=== PATIENT | female | born 1950 | race Caucasian/White ===

== ENCOUNTER → 2022-06-26 | Outpatient (CLI) | payer MEDICARE ==
[2022-06-28 13:43] LABS: Stool Occult Blood Guaiac 1 Neg (Neg)
== END | disposition home or self-care (01) ==
LOC: LAB 15:15 → LAB SHORT 15:15
PROVIDERS: Family Medicine
DX: K92.1 Melena (principal)
CPT/HCPCS: 82272

== ENCOUNTER 2024-03-22 08:11 | Day surgery (SDC) | payer MEDICARE ==
[~2024-03-22] VITALS: Ht 167.6 cm; Wt 50.7 kg
[~2024-03-22 08:11] MED LIST: Lactated Ringer's 1,000 ML IV ONE; propofoL 50 ML IV ONE
[2024-03-22] MEDS ORDERED: CHLO25B (09:04)
[2024-03-22] MEDS ORDERED: VITAMIN D325 MC3 (09:05)
[2024-03-22] MEDS ORDERED: FISH OIL 1,0001 EA10 (09:05)
[2024-03-22] MEDS ORDERED: VALA500 (09:06)
[2024-03-22] MEDS ORDERED: ZESTRIL40 M1 (09:06)
[2024-03-22] MEDS ORDERED: Lactated Ringer's 1,000 ML IV ONE (09:15)
[2024-03-22 10:33] VITALS: BP 106/84
--- NOTE | 2024-03-22 11:04 | NUR ---
03/22/24 1104 Esequiel Alvarez 16ML NS INJECTED FOR POLYPECTOMY
== END 2024-03-22 10:46 | disposition home or self-care (01) ==
LOC: ORSCSDS 08:11
PROVIDERS: Internal Medicine Gastroenterology
PROC: 0DBK8ZX Excision of Ascending Colon, Via Natural or Artificial Opening Endoscopic, Diagnostic (ICD-10-PCS; principal; 2024-03-22 09:30)
PROC: 0DBH8ZX Excision of Cecum, Via Natural or Artificial Opening Endoscopic, Diagnostic (ICD-10-PCS; principal; 2024-03-22 09:30)
DX: K62.5 Hemorrhage of anus and rectum (principal); D12.0 Benign neoplasm of cecum; D12.3 Benign neoplasm of transverse colon; K57.30 Diverticulosis of large intestine without perforation or abscess without bleeding; K64.4 Residual hemorrhoidal skin tags; E78.5 Hyperlipidemia, unspecified; N18.2 Chronic kidney disease, stage 2 (mild); I12.9 Hypertensive chronic kidney disease with stage 1 through stage 4 chronic kidney disease, or unspecified chronic kidney disease; Z79.899 Other long term (current) drug therapy
CPT/HCPCS: 88305; J2704; J7120